=== PATIENT | female | born 1995 | race Caucasian/White ===

== ENCOUNTER 2025-03-27 08:03 | Emergency (ER) | payer OTHER, SELFPAY ==
--- NOTE | 2025-03-27 08:08 | ED_ITS ---
HPI - URI/Sore Throat General Chief Complaint: Upper Respiratory Infection Stated Complaint: Sore Throat Source: patient, RN notes reviewed and old records reviewed Mode of arrival: ambulatory Limitations: no limitations Review of Systems 2 Review of Systems: All systems reviewed & are unremarkable except as noted in HPI and below Constitutional: Constitutional: Reports no additional constitutional complaints ENT: Reports system reviewed and no additional complaints, except as documented Cardiovascular: Cardiovascular: Reports no additional cardiovascular complaints, Denies chest pain and Denies dyspnea Respiratory: Respiratory: Reports no additional respiratory complaints, Denies chest congestion, Denies cough and Denies dyspnea Musculoskeletal: Musculoskeletal: Reports no additional musculoskeletal complaints Integumentary/Breasts: Skin/Breast: Reports system reviewed and no additional complaints, except as docu PMFSH Comments At the time of my signature, I reviewed and agree with the nursing past medical, surgical, social, and family history. There is no relevant family history pertinent to the patient complaint. Exam Const: General: cooperative, healthy appearing, comfortable, no acute distress, well developed, alert and well nourished Nutritional Appearance: well nourished Orientation/consciousness: patient oriented x3 Limitations: no limitations HENMT: Head: normal to inspection Eyes: General: appearance normal, both eyes and all related structures Alignment and Position: alignment normal Neck: Neck: normal visual inspection, full ROM, no lymphadenopathy and no meningeal signs Chest: Chest palpation & inspection: normal inspection of the chest Resp: Effort & Inspection: normal respiratory effort and able to speak in complete sentences Auscultation: clear to auscultation bilaterally, no crackles, no rales, no rhonchi and no wheezes Cardio: Rate: regular rate Skin: General skin exam: normal color and no rashes or lesions noted Neuro: General: patient oriented x3, gait normal, moves all extremities and no meningeal signs Cognition (Neuro): normal cognition Speech: normal speech Gait exam (Neuro): Normal gait present Extrem: General: normal to inspection, full ROM, capillary refill normal and normal gait Psych: Appearance: grossly normal and well kempt Mental Status: mental status grossly normal Speech and movement: Normal speech and movement present and Clear speech present Affect: normal affect Attitude: cooperative Course Course Level of Care: Express Care Visit Vital Signs Vital signs: Reviewed Critical Care Time Critical Care Time Critical Care Time: No Discharge Plan Discharge Patient Language: Azeri Follow-up/Referrals: UNKNOWN,DOCTOR [Non-Staff] -
--- OUTSIDE RECORDS SUMMARY | 2025-03-27 08:11 | XMS_ITS | Clinical Summary ---
Author Organization [facility] Address [address] [place] [address] Phone Care Team Providers Care Marksmanship Instructor Name Role Phone Provider, None Primary Care Provider Unavailabl e Allergies No known active allergies Medications levonorgestrel (Mirena, 52 MG,) 20 MCG/24HR IUDIndications: Patient had placed 4 years ago 1 Intra Uterine Device by Intrauterine route once. Indications: Patient had placed 4 years ago Active Cholecalciferol (Vitamin D3) 1.25 MG (02086 UT) Tablet Take 1 Tablet by mouth once a week. 12 Tablet 1 Active FLUoxetine (PROzac) 20 MG CapsuleIndicati ons:GABRIEL (generalized anxiety disorder) TAKE 1 CAPSULE BY MOUTH EVERY DAY 90 Capsule 1 1 Active buPROPion (WELLBUTRIN) 150 MG XL tabletIndicatio ns:Mild episode of recurrent major depressive disorder (HCC) Take 1 Tablet by mouth every morning. 90 Tablet 1 Active tamsulosin (FLOMAX) 0.4 MG Capsule Take 1 Capsule by mouth daily. 10 Capsule 3 Active HYDROcodone-ant taminophen ([place]) 7.5-325 MG TabletIndicatio ns:Ureterolithi asis Take 1 Tablet by mouth every 6 hours as needed for Moderate or more severe pain. 15 Tablet 3 Active naproxen (NAPROSYN) 500 MG Tablet Take 1 Tablet by mouth 2 times daily as needed for Mild or more severe pain. 20 Tablet Active Active Problems No known active problems Immunizations Immunization Administration Dates Next Due [id number] melania MCV4, Unspecif ied Formulation 04/27/2011 DTAP VACCINE 11/16/2001,04/08/1998 Hepatitis A Vaccine 12/21/2011,04/27/2011 Hepatitis B Vaccine 12/21/2011,04/27/2011,1996 Hib (PRP-OMP) Vaccine 04/09/1998 Hpv, Unspecified Formulation 12/21/2011,07/15/20 11 Human Papillomavirus (HPV) 9 -valent Vaccine 04/27/2011 Inactivated Polio Vaccine 04/27/2011,11/16/2001, 07/27/1997 MMR Vaccine 11/16/2001,1997 TDAP Vaccine 12/21/2011, 1,11/16/2001,04/08 Family History Relation Name Status Comments Father Alive Mother Alive Social History Tobacco Use Types Packs/Day Years Used Date Smoking Tobacco: Never Smokeless Tobacco: Never Tobacco Cessation:Counseling Given: No Alcohol Use Standard Drinks/Week Comments Yes 0 (1 standard drink = 0.6 oz pur e alcohol) social PHQ-2 Answer Date Recorded Total Score - Questions 1-9 0 01/11 Education Answer Date Recorded What is the highest level of school you have completed or the highest degree you have received? Some college, no degree 02/18/2021 Sexually Active Control Partners Comments Not Currently I.U.D. Comments No Sex and Gender Information Value Date Recorded Sex Assigned at Not on file Legal Sex Female 5:19 PM CDT Gender Identity Not on file Sexual Orientation Not on file Last Filed Vital Signs Vital Sign Reading Time Taken Comments Blood Pressure 129/75 08/18/2024 4:15 PM EMBROIDERY MACHINE OPERATOR Pulse 81 08/18/2024 4:15 PM EMBROIDERY MACHINE OPERATOR Temperature 36.3 C (97.4 F) 08/18/2024 12:56 PM EMBROIDERY MACHINE OPERATOR Respiratory Rate 17 08/18/2024 4:15 PM EMBROIDERY MACHINE OPERATOR Oxygen Saturation 100% 08/18/2024 4:15 PM EMBROIDERY MACHINE OPERATOR Inhaled Oxygen Concentration - - Weight 129.3 kg (285 lb) 08/18/2024 12:56 PM EMBROIDERY MACHINE OPERATOR Height 175.3 cm (5' 9) 08/18/2024 12:56 PM EMBROIDERY MACHINE OPERATOR Body Mass Index 42.09 08/18/2024 12:56 PM EMBROIDERY MACHINE OPERATOR Plan of Treatment Health Maintenance Due Date Last Done Comments Hepatitis C Virus (HCV) Screening 1996 Pap Smear 2017 SARS-COV-2 Immunization ( - 2023- season) 2024 Influenza Immunization (#1) 2025 Respiratory Syncytial Virus (RSV) Immunization (Adult) (1 - 1-dose 75+ series) 2071 Meningococcal Immunization (ACWY) Aged Out 04/27/2011 No longer eligible based on patient's age to complete this topic DTaP/Tdap/Td Immunization Discontinued 2011, 04/27/2011, 11/16/2001, Additional history exists Hepatitis B Immunization Completed 012, 04/27/2011, 07/27/1997 Human Papillomavirus (HPV) Immunization Completed 12/21/2011, 07/15/2011, 04/27/2011 Pneumococcal Immunization Combined Aged Out No longer eligible based on patient's age to complete this topic Rotavirus Immunization Aged Out No lo nger eligible based on patient's age to complete this topic Insurance [facility] OON Care Teams Marksmanship Instructor Relationship Specialty Start Date End Date Provider, None [place] PCP - General 12/05/22
--- OUTSIDE RECORDS SUMMARY | 2025-03-27 08:11 | XMS_ITS | Continuity of Care Document ---
Author Name Roderick Olverais Address [address] [place], [place] [id number] [place] [address] Organization Unknown Address [address] [place] [address] Medications No known medications Problems No known problems
--- OUTSIDE RECORDS SUMMARY | 2025-03-27 08:11 | XMS_ITS | Referral Summary ---
Author Organization [facility] Address [address] [place] [address] Care Team Providers Care Chefs Name Role Phone Mirna Foley MD Primary Care Provider [phone] Allergies No known active allergies Medications dextroamphetamine -amphetamine (ADDERALL) 20 mg tabletIndications :Attention-Defici t Hyperactivity Disorder Take 1 tablet (20 mg total) by mouth 2 (two) times a day Earliest Fill Date: 12/16/17. 60 tablet 8 Active Additional Information Patient not taking.Reported on 09/01/2023 dextroamphetamine -amphetamine (ADDERALL) 20 mg tabletIndications :Attention-Defici t Hyperactivity Disorder Take 1 tablet (20 mg total) by mouth 2 (two) times a day Earliest Fill Date: 01/15/18. 60 tablet 8 Active Additional Information Patient not taking.Reported on 09/01/2023 methylPREDNISolon e (Medrol, Lyndon,) 4 mg DosepackIndicatio ns:Viral URI with cough follow package directions 21 tablet 3 Active Active Problems No known active problems Immunizations Immunization Administration Dates Next Due DTaP 11/16/2001,04/08/1998 HPV, Unspecified 12/21/2011,07/15/2011 HPV9 04/27/2011 Hep A, Adult 12/21/2011,04/27/2011 Hep B Vaccine 12/21/2011,04/27/2011 Hep B, Adolescent or Pediatric 07/27/1997 Hib (PRP-OMP) 04/09/1998 IPV 04/27/2011,11/16/2001,07/27/1997 Influenza, Trivalent, Split, Preservative Free, Intradermal 06/11/2014 MMR 11/16/2001,1997 Meningococcal MCV4P (Menactra) 04/27/2011 Tdap 12/21/2011, 1,11/16/2001,04/08 Social History Tobacco Use Types Packs/Day Years Used Date Smoking Tobacco: Every Day Smokeless Tobacco: Never Tobacco Cessation:Ready to Q uit: Not Asked; Counseling Given: Not Answered Comments No Sex and Gender Information Value Date Recorded Sex Assigned at Not on file Legal Sex Female 2:16 AM WASHER OFF Gender Identity Not on file Sexual Orientation Not on file Last Filed Vital Signs Vital Sign Reading Time Taken Comments Blood Pressure 112/70 09/01/2023 10:35 AM WASHER OFF Pulse 65 09/01/2023 10:35 AM WASHER OFF Temperature 36.5 C (97.7 F) 09/01/2023 10:35 AM WASHER OFF Respiratory Rate 19 09/01/2023 10:35 AM WASHER OFF Oxygen Saturation 96% 09/01/2023 10:35 AM WASHER OFF Inhaled Oxygen Concentration - - Weight 122.5 kg (270 lb) 09/01/2023 10:35 AM WASHER OFF Height 175.3 cm (5' 9) 09/01/2023 10:35 AM WASHER OFF Body Mass Index 39.87 09/01/2023 10:35 AM WASHER OFF Plan of Treatment Not on file Insurance [facility] PREFERRED ANTHEM ACCESS BLUE ACCESS OOS Care Teams Chefs Relationship Specialty Start Date End Date Mirna Foley MD PCP - General 12/01/19
--- OUTSIDE RECORDS SUMMARY | 2025-03-27 08:11 | XMS_ITS | Continuity of Care Document ---
Author Name WadeRoderickis Address [address] [place], [place] [id number] [place] [address] Organization Unknown Address [address] [place] [address] Problems No known problems
--- OUTSIDE RECORDS SUMMARY | 2025-03-27 08:11 | XMS_ITS | Encounter Summary ---
Author Organization [facility] Address [address] [place] [address] Phone Care Team Providers Care Clinical Nursing Manager Name Role Phone Katharina Bolaños APRN, KIERAN Primary Care P rovider Provider, None Primary Care Provider Unavailabl e Reason for Visit * Reason Comments Medication Refill Encounter Details Date Type Department Care Team (Late st Contact Info) Description 04/15/2021 Refill [facility] - Primary Care - [place] [address] [place] [address] Katharina Bolaños APRN QA REVIEWER [address] [place] [address] Medication Refill Social History Tobacco Use Types Packs/Day Years Used Date Smoking Tobacco: Never Smokeless Tobacco: Never Alcohol Use Standard Drinks/Week Comments Yes 0 [...] on file Sexual Orientation Not on file documented as of this encounter Miscellaneous Notes * Telephone Encounter - Katharina Bolaños APN, CNP - 04/15/2021 10:08 AM CDT Due for lab recheck * Telephone Encounter - Devorah Meyer RN - 04/15/2021 9:44 AM CDT Medication failed the protocol, provider to review and approve the medication order if appropriate. Requested Prescriptions Pending Prescriptions Disp Refills D3-50 1.25 MG (36114 UT) Capsule [Pharmacy Med Name: VITAMIN D3-50 50,000 UNIT CAP] 12 Capsule 1 Sig: TAKE 1 TABLET BY MOUTH ONCE A WEEK. [facility] Off-Protocol Failed - 04/15/2021 9:44 AM Failed - Medication not assigned to a protocol, review manually. Passed - Valid encounter within last 12 months Past Office Visits Recent Outpatient Visits 1 month ago GABRIEL (generalized anxiety disorder) [facility] Katharina Bolaños APN, CNP 2 months ago Preventative health care (Adult) [facility] Katharina Bolaños APN, CNP Upcoming Appointments CLINICAL SOCIAL WORK AIDE - Recent and Past Visits Recent Visits Date Type Provider Dept 02/27/21 Office Visit Katharina Bolaños APN, CNP [facility] 01/24/21 Office Visit Katharina Bolaños APN, CNP [facility] Showing recent visits within past 460 days with a meds authorizing provider and meeting all other requirements Future Appointments No visits were found meeting these conditions. Showing future appointments within next 90 days with a meds authorizing provider and meeting all other requirements documented in this encounter Plan of Treatment Not on file documented as of this encounter Visit Diagnoses Not on filedocumented in this encounter Additional Health Concerns Infection Onset Date Last Indicated Resolved Time COVID - 19 08/18/2024 08/18/2024 08/18/2024 2:11 PM LOAN SERVICE OFFICER Assessment Noted Time PHQ-9 Depression Total Score: 0 01/25/20 9:00 AM CDT documented as of this encounter Care Teams Clinical Nursing Manager Relationship Specialty Start Date End Date Katharina Bolaños, LEGUILLON DEBEADER, QA REVIEWER [address] [place] [address] PCP - General Advanced Practice Nurse 01/24/21 Provider, None [place] PCP - General 12/05/22 documented as of this encounter
--- OUTSIDE RECORDS SUMMARY | 2025-03-27 08:11 | XMS_ITS | Encounter Summary ---
Author Organization [facility] Address [address] [place] [address] Phone Care Team Providers Care Mutuel Department Manager Name Role Phone Katharina Bolaños APRN, KIERAN Primary Care P rovider Provider, None Primary Care Provider Unavailabl e Reason for Visit * Reason Comments Medication Refill Encounter Details Date Type Department Care Team (Late st Contact Info) Description 02/15/2021 Refill [facility] - Primary Care - [place] [address] [place] [address] Katharina Bolaños APRN, CNP [address] [place] [address] Medication Refill Social History Tobacco Use Types Packs/Day Years Used Date Smoking Tobacco: Never Smokeless Tobacco: Never Alcohol Use Standard Drinks/Week Comments Yes 0 (1 standard drink = 0.6 oz pur e alcohol) social PHQ-2 Answer Date Recorded Total Score - Questions 1-9 0 01/11 Sexually Active Control Partners Comments Not Currently I.U.D. Comments No Sex and Gender Information Value Date Recorded Sex Assigned at Not on file Legal Sex Female 5:19 PM CDT Gender Identity Not on file Sexual Orientation Not on file COVID-19 Exposure Response Date Recorded In the last month, have you been in contact with someone who was confirmed or suspected to have Coronavirus / COVID-19? No / Unsure 02/18/2021 12:39 PM CDT documented as of this encounter Miscellaneous Notes * Telephone Encounter - Ruby [place] RN - 02/17/2021 8:34 PM CDT Medication failed the protocol, provider to review and approve the medication order if appropriate. Requested Prescriptions Pending Prescriptions Disp Refills FLUoxetine (PROzac) 20 MG Capsule [Pharmacy Med Name: FLUOXETINE HCL 20 MG CAPSULE] 30 Capsule 2 Sig: TAKE 1 CAPSULE BY MOUTH EVERY DAY SSRI (6 Month Refill Only) Protocol Failed - 02/15/2021 9:32 AM Failed - Patient has establiashed therapy with SSRI for at least 6 months Passed - No test in the past 12 months or most recent test was negative Passed - No active on record Passed - Visit with relevant provider in past 6 months or upcoming 90 days Recent Visits Date Type Provider Dept 01/24/21 Office Visit Katharina Bolaños APN, KIERAN [facility] Showing recent visits within past 182 days and meeting all other requirements Future Appointments Date Type Provider Dept 02/20/21 Appointment Katharina Bolaños APN, KIERAN [facility] Showing future appointments within next 90 days and meeting all other requirements Passed - Has an encounter in the past 6 months with a depression or anxiety visit diagnosis documented in this encounter Plan of Treatment Not on file documented as of this encounter Visit Diagnoses Diagnosis GABRIEL (generalized anxiety disorder) Generalized anxiety disorder documented in this encounter Additional Health Concerns Infection Onset Date Last Indicated Resolved Time COVID - 19 08/18/2024 08/18/2024 08/18/2024 2:11 PM VALIDATION SPECIALIST Assessment Noted Time PHQ-9 Depression Total Score: 0 01/25/20 9:00 AM CDT documented as of this encounter Care Teams Mutuel Department Manager Relationship Specialty Start Date End Date Katharina Bolaños APRN, VP [facility] [address] [place] [address] PCP - General Advanced Practice Nurse 01/24/21 Provider, None [place] PCP - General 12/05/22 documented as of this encounter
--- OUTSIDE RECORDS SUMMARY | 2025-03-27 08:11 | XMS_ITS | Clinical Summary ---
Author Organization [facility] [address] [place] [address] [place] [address] Care Team Providers Care Medical Imaging Director Name Role Phone Unavailable Primary Care Provider Unavailabl e Allergies No known active allergies Medications Drospirenone-Ethin yl estradiol (Tammy Roa,) 3-0.02 mg tabletIndications: Encounter for surveillance of contraceptive pills,PMDD (premenstrual dysphoric disorder) Take 1 Tablet by mouth daily. 84 Tablet 3 4 Active buPROPion HCL (Wellbutrin XL) 300 mg Extended Release 24 hour tablet Take 1 Tablet (300 mg) by mouth daily in the morning. 90 Tablet 5 Active nitrofurantoin (MACROBID) 100 mg capsule Take 1 Capsule (100 mg) by mouth 2 times daily. For 7 days 14 Capsule 5 Active Active Problems No known active problems Encounters Date Type Department Care Team Description 03/13/2025 External Device Data STL ABSTRACTION Provider, Abstract from Last 3 Months Family History Medical History Relation Name Comments Healthy Brother Healthy Mother Healthy Sister Breast Cancer Neg Hx Colon Cancer Neg Hx Relation Name Status Comments Brother Alive Mother Alive Sister Alive Social History Tobacco Use Types Packs/Day Years Used Date Smoking Tobacco: Never Smokeless Tobacco: Never Tobacco Cessation:Counseling Given: Not Answered Alcohol Use Standard Drinks/Week Comments Yes 0 (1 standard drink = 0.6 oz pur e alcohol) socially Comments No Sex and Gender Information Value Date Recorded Sex Assigned at Not on file Legal Sex Female 10:13 AM 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 Gender Identity Not on file Sexual Orientation Not on file Last Filed Vital Signs Vital Sign Reading Time Taken Comments Blood Pressure 118/82 01/27/2024 8:08 AM CDT Pulse - - Temperature - - Respiratory Rate - - Oxygen Saturation - - Inhaled Oxygen Concentration - - Weight 128.5 kg (283 lb 3.2 oz) 01/27/2024 8:08 AM CDT Height 175.3 cm (5' 9) 01/27/2024 8:08 AM CDT Body Mass Index 41.82 01/27/2024 8:08 AM CDT Plan of Treatment Health Maintenance Due Date Last Done Comments HPV/Cotest (21-29) 2017 DTAP/TDAP/TD VACCINES (5 - T d or Tdap) 12/20/2021 12/21/2011, 04/27/2011, 11/16/2001, Additional history exists INFLUENZA VACCINE (#1) 2025 06/11/2014 CERVICAL CANCER SCREENING 11/30/2026 PAP SMEAR 11/30/2026 12/01/2023 HEPATITIS B VACCINES Completed 12/21/2011, 04/27/2011, 07/27/1997, Additional history exists HPV VACCINES Completed 12/21/2011, 10/2010, 04/27/2011 Procedures Procedure Name Priority Date/Time Associated Diagnosis Comments CERV/VAG CYTO AGE BASED SCREEN PAP W CT/NG, TRICH Routine 12/01/2023 8:59 AM CDT Well female exam with routine gynecological exam Screening for cervical cancer Screening for STDs (sexually transmitted diseases) from Last 3 Months or Most Recently Relevant to Health Maintenance Results * CERV/VAG CYTO AGE BASED SCREEN PAP W CT/NG, TRICH (12/01/2023 8:59 AM CDT) COMMENT (PAP): [facility] Comment: This order for age-based cervical cancer and STI screening follows ACOG guidelines(PB 168, 140, YIA255). See individual assays for performing site location. CLINICAL INFORMATION [facility] Comment:None given LAST MENSTRUAL PERIOD [facility] Comment:[id number] PREV PAP: [facility] Comment:NONE GIVEN PREV BX: [facility] Comment:NONE GIVEN SOURCE [facility] Comment:Endocervix ADEQUACY: [facility] Comment: Satisfactory for evaluation. Endocervical/transformation zone component present. Partially obscuring blood PAP INTERP [facility] Comment: Cytology Results: Negative for intraepithelial lesion or malignancy. COMMENT (PAP TEST) [facility] Comment: This Pap test has been evaluated with computer assisted technology. BLACK JACK DEALER: Mary Reina Comment: DENISSE MATOS(ASCP) CT Screening Location: [place] [address] , [place] [address] EXPLANATORY NOTE [facility] Comment: EXPLANATORY NOTE: The Pap is a screening test for cervical cancer. It is not a diagnostic test and is subject to false negative and false positive results. It is most reliable when a satisfactory sample, regularly obtained, is submitted with relevant clinical findings and history, and when the Pap result is evaluated along with historic and current clinical information. C TRAC RNA NOT DETECTED NOT DETECTED [facility] N.GONORRHOEAE RNA, TMA NOT DETECTED NOT DETECTED [facility] COMMENT INFECTIOUS DISEASE [facility] Comment: The analytical performance characteristics of this assay, when used to test SurePath(TM) specimens have been determined by [facility]. The modifications have not been cleared or approved by the FDA. This assay has been validated pursuant to the CLIA regulations and is used for clinical purposes. For additional information, please refer to https://education.[employer]/faq/SQX287 (This link is being provided for information/ educational purposes only.) TRICHOMONAS VAGINALIS,QUALITAT NELIA,PAP VIAL NOT DETECTED NOT DETECTED [facility] Comment: The analytical performance characteristics of this assay have been determined by [facility]. The modifications have not been cleared or approved by the FDA. This assay has been validated pursuant to the CLIA regulations and is used for clinical purposes. For additional information, please refer to http://education.[employer]/ faq/Trichomonastma (This link is being provided for information/ educational purposes only.) Test Performed at: [facility] [address] [id number] Amberly POOLE Genital SWAB OF ENDOCERVIX / Unknown 12/01/2023 8:59 AM CDT 12/01/2023 1:27 PM CDT us Ashley C Day MD PATHOLOGY/CYTOLOGY ORDERABLES [facility] Result [facility] [phone] [facility] [id number] [place] [phone] from Last 3 Months or Most Recently Relevant to Health Maintenance Insurance [id number] INDIVIDUAL EXCHANGE [id number]
--- OUTSIDE RECORDS SUMMARY | 2025-03-27 08:11 | XMS_ITS | Clinical Summary ---
Author Organization [facility] Address [address] [place] [address] Care Team Providers Care Rob[employer] Application Engineer Name Role Phone Mirna Foley MD Primary Care Provider [phone] Allergies No known active allergies Medications dextroamphetamine [...] Meningococcal MCV4P (Menactra) 04/27/2011 Tdap 12/21/2011, 1,11/16/2001,04/08 Medical History Medical History Date Comments Anxiety Family History Medical History Relation Name Comments Other Brother 2 Alive and well; Other Father Alive and well; Other Mother Alive and well; Other Sister 2 Alive and well; Relation Name Status Comments Brother 1 Alive Brother 2 Father Alive Mother Alive Sister 1 Alive Sister 2 Social History Tobacco Use Types Packs/Day Years Used Date Smoking Tobacco: Every Day Smokeless Tobacco: Never Tobacco Cessation:Ready to Q uit: Not Asked; Counseling Given: Not Answered Comments No Sex and Gender Information Value Date Recorded Sex Assigned at Not on file Legal Sex Female 2:16 AM BUSINESS ASST Gender Identity Not on file Sexual Orientation Not on file Obstetrics History Last Filed Vital Signs Vital Sign Reading Time Taken Comments Blood Pressure 112/70 09/01/2023 10:35 AM BUSINESS ASST Pulse 65 09/01/2023 10:35 AM BUSINESS ASST Temperature 36.5 C (97.7 F) 09/01/2023 10:35 AM BUSINESS ASST Respiratory Rate 19 09/01/2023 10:35 AM BUSINESS ASST Oxygen Saturation 96% 09/01/2023 10:35 AM BUSINESS ASST Inhaled Oxygen Concentration - - Weight 122.5 kg (270 lb) 09/01/2023 10:35 AM BUSINESS ASST Height 175.3 cm (5' 9) 09/01/2023 10:35 AM BUSINESS ASST Body Mass Index 39.87 09/01/2023 10:35 AM BUSINESS ASST Plan of Treatment Health Maintenance Due Date Last Done Comments Cervical Cancer Screening 1996 Hepatitis C Screening 1996 Varicella Vaccines (1 of 2 - 13+ 2-dose series) 2009 Regular Well Visit/Exam 18-64 2014 Pneumococcal vaccine <65 (1 of 2 - PCV) 2015 Depression Screening 04/02/2018 04/02/2017 Influenza Vaccine (Season Ended) 2025 06/11/20 14 DTaP/Tdap/Td Vaccine (6 - Td or Tdap) 04/22/2032 04/22/2022, 12/21/2011, 04/27/2011, Additional history exists HPV Vaccines Completed 12/21/2011, 10/2010, 04/27/2011 Hepatitis B Screening Completed 12/21/2011 , 04/27/2011, 07/27/1997 Insurance ANTHEM PREFERRED ANTHEM ACCESS BLUE ACCESS OOS Care Teams Robotics Application Engineer Relationship Specialty Start Date End Date Mirna Foley MD PCP - General 12/01/19
[2025-03-27 08:12] VITALS: BP 130/69; PULSE 72; RESP 18; TEMP 36.4; O2SAT 100
--- NOTE | 2025-03-27 08:16 | ED_ITS ---
HPI - URI/Sore Throat General Chief Complaint: Upper Respiratory Infection Stated Complaint: Sore Throat Time Seen by Provider: 03/27/25 08:15 Source: patient and RN notes reviewed Mode of arrival: ambulatory Limitations: no limitations History of Present Illness HPI Narrative: 29-year-old female presents Express Care complaining of sore throat since yesterday. Patient said today she is starting to develop a dry cough, congestion, body aches, sweats patient denies any fevers, earache, chest pain, shortness of breath, nausea, vomiting, diarrhea chills, or any other symptoms. She has tried [id number] sinus and cold medication with some relief. Denies significant past medical history Related Data Allergies Allergy/AdvReac Type Severity Reaction Status Date / Time No Known Allergies Allergy Verified 03/27/25 08:15 Review of Systems Review of Systems: CONSTITUTIONAL: Denies fever, chills, body aches, or sweats. EYES: Denies visual changes, redness, or discharge. ENT: Positive for congestion, sore throat. Negative for rhinorrhea or otalgia. CARDIOVASCULAR: Denies chest pain, palpitations, or edema. RESPIRATORY: Positive for cough. Negative for dyspnea or wheezing. GASTROINTESTINAL: Denies abdominal pain, nausea, vomiting, or diarrhea. GENITOURINARY: Denies dysuria or hematuria. SKIN: Denies rash or itching. MUSCULOSKELETAL: Denies back pain, joint pain, or myalgia. NEUROLOGIC: Denies headache, numbness, or weakness. PSYCHIATRIC: Denies anxiety or depression. All other systems reviewed are negative, except as documented in HPI. PMFSH Comments At the time of my signature, I reviewed and agree with the nursing past medical, surgical, social, and family history. There is no relevant family history pertinent to the patient complaint. Exam Narrative: GENERAL: This is a well-nourished, well-developed adult, in no apparent distress. They are non ill-appearing, nontoxic appearing. HEAD: normocephalic, atraumatic. EYES: Sclera clear/white. Vision is grossly intact. Conjunctiva normal bilaterally. Extraocular movements intact. EARS: External ears normal, auditory canals clear and without drainage, TMs pearly pichardo with good cone of light, without erythema or perforation. Effusions present bilateral. Hearing grossly intact. NOSE: External nose normal with no obvious nasal discharge, nasal turbinates erythematous, no rhinorrhea. THROAT: Mucous membranes moist, posterior pharynx erythematous without exudate. Uvula is midline. Postnasal drip present. NECK: Neck supple, non-tender without lymphadenopathy, masses or thyromegaly. CARDIOVASCULAR: Regular rate and rhythm without murmurs, gallops, or rubs. RESPIRATORY: Clear to auscultation. Breath sounds equal bilaterally. No wheezes, rales, or rhonchi. SKIN: warm, Dry, intact with no suspicious lesions or rash, good texture and turgor. NEURO: awake, alert, and oriented to person, place and time. There were no obvious focal neurologic abnormalities. EXTREMITIES: No joint tenderness, effusion, or edema noted. BACK: Nontender without deformity. Course Course Emergency Course: Portions of this record may have been created with voice recognition software Level of Care: Express Care Visit Vital Signs Vital signs: Vital Signs Temperature 97.6 F 03/27/25 08:12 Pulse Rate 72 03/27/25 08:12 Respiratory Rate 18 03/27/25 08:12 Blood Pressure 130/69 03/27/25 08:12 Pulse Oximetry 100 03/27/25 08:12 Oxygen Delivery Room Air 03/27/25 08:12 Temperature 97.6 F 03/27/25 08:12 Pulse Rate 72 03/27/25 08:12 Respiratory Rate 18 03/27/25 08:12 Blood Pressure 130/69 03/27/25 08:12 Pulse Oximetry 100 03/27/25 08:12 Oxygen Delivery Room Air 03/27/25 08:12 MDM - URI/Sore Throat MDM Narrative Medical decision making narrative: Rapid strep negative. Throat culture is pending. Patient's symptoms likely are viral in etiology. Discussed physical exam findings. Advised supportive denisa sures and signs/symptoms to go to the ER. Pt is appropriate for outpt treatment and f/u. Differential Diagnosis Differential diagnosis: Likely upper respiratory infection, sinusitis, viral infection and pharyngitis Lab Data Attestation: I reviewed the patient's lab results. Labs: Lab Results 03/27/25 Range/Units 08:24 POC Grp A Strep Screen Negative (Negative) Discharge Plan Discharge Clinical Impression: Upper respiratory infection Qualifiers: URI type: unspecified viral URI Qualified Code(s): J06.9 - Acute upper respiratory infection, unspecified Patient Disposition: Home Condition: Stable Instructions: Antibiotic Form, Upper Respiratory Infection (ED) Additional Instructions: Your rapid strep swab was negative today at [facility]. You will be notified in a few days if the culture comes back positive for strep, and appropriate a ntibiotics will be called in for you at that time. Your symptoms are likely due to a viral illness, which is not treated with antibiotics. Viral symptoms can be present for up to 7-14 days. Take Tylenol or ibuprofen for fever or pain. Rest and stay hydrated. Follow up with your PCP in 5-7 days if symptoms are not improving. Go to the ER immediately if you difficulty breathing or swallowing Patient Language: Yoruba Follow-up/Referrals: UNKNOWN,DOCTOR [Non-Staff] - Stand Alone Forms: Work/School Release IP Time of Disposition: 08:29
[2025-03-27 08:26] LABS: EDSTREPNEGPOS1 Negative (Negative)
== END 2025-03-27 08:38 | disposition home or self-care (01) ==
DX: J06.9 Acute upper respiratory infection, unspecified (principal)
CPT/HCPCS: 87081; 87880; 99212; G0463